=== PATIENT | female | born 1965 | race Caucasian/White ===

== ENCOUNTER 2019-03-13 17:15 | Inpatient (IN) ==
[2019-03-13 18:50] LABS: BASO# 0.07 X1000 (0.0-0.2); BASO% 2.5 % (0.0-0.8); EOS# 0.01 X1000 (0.0-0.7); EOS% 0.4 % (0.0-10.0); HEMATOCRIT 39.1 % (37.0-47.0); HEMOGLOBIN 12.7 g/dL (12.0-16.0); IMM GRAN# 0.02 X1000 (0.0-0.04); IMM GRAN% 0.7 % (0.0-0.5); LYMPH# 0.93 X1000 (1.2-3.4); MCH 30.3 PG (27-31); MCHC 32.5 g/dL (33-37); MCV 93.3 FL (81-99); MONO# 0.21 X1000 (0.11-0.59); MONO% 7.4 % (1.7-9.3); MPV 11.2 FL (7.4-10.4); NEUT# 1.58 X1000 (1.4-6.5); PLT 151 X1000 (130-400); RBC 4.19 XMIL (4.2-5.4); RDW 13.5 % (11.5-14.5); WBC 2.82 X1000 (4.8-10.8)
--- NOTE | 2019-03-13 18:51 | PROVIDER DOCUMENTATION ---
HPI-General Adult - General Chief Complaint: Flu Symptoms Stated Complaint: BODY PAIN Time Seen by Provider: 03/13/19 18:50 Source: patient Allergies/Adverse Reactions: Patient Allergies Allergy/AdvReac Type Severity Reaction Status Date / Time Penicillins Allergy Unknown Unknown Verified 04/05/12 03:43 Home Medications: Home Medication List Medication Instructions Recorded Confirmed Last Taken Type NK [No Home Medications] 03/13/19 03/13/19 Unknown History - History of Present Illness -Gen Adult Nature of Presenting Problems: 53 yr old F, hx of COPD, presents with a one week hx of flu-like symptoms - has had generalized malaise, body aches and cough. She denies fever or chills; reports taking OTC tylenol and goody powder for at least three days. She denies sick contacts. Location of Pain/Injury: reports: generalized Quality of Pain: reports: aching Severity: reports: moderate Onset/Duration: reports: 1 week ago Timing: reports: still present Associated Symptoms: reports: cough, fatigue Similar Symptoms Previously?: No Review of Systems - Adult - REVIEW OF SYSTEMS - ADULT Constitutional: reports: see HPI. denies: chills, fever Eyes: reports: no symptoms reported Ears, Nose, Mouth & Throat: reports: no symptoms reported Cardiovascular: reports: no symptoms reported Respiratory: reports: cough Gastrointestinal: reports: no symptoms reported Genitourinary: reports: no symptoms reported Musculoskeletal: reports: muscle aches Integumentary: reports: no symptoms reported Neurological: reports: no symptoms reported Psychiatric: reports: alcohol/drug dependence (reports hx of alcohol abuse in the past) Past History - Adult - PAST MEDICAL HISTORY-ADULT Review of Records: reports: Nursing Assessment Review Cardiovascular: reports: denies history Respiratory: reports: COPD Gastrointestinal: reports: denies history Neurological: reports: denies history - FAMILY HISTORY Family History: reviewed, not pertinent - SOCIAL HISTORY Smoking: cigarettes Physical Exam-General - PHYSICAL EXAM-ADULT Initial Vital Signs Reviewed: Yes - CONSTITUTIONAL General Appearance: alert, mild distress, thin - EYES Eyes: PERRL/EOMI. negative: scleral icterus - HEAD, EARS, NOSE, MOUTH & THROAT HENMT: normocephalic/atraumatic, moist mucous membranes - RESPIRATORY Respiratory: chest non-tender, lungs clear, normal breath sounds - CARDIOVASCULAR Cardiovascular: tachycardia - GASTROINTESTINAL (ABDOMEN) Abdominal Exam: normal bowel sounds, non tender, soft - SKIN Integumentary: warm/dry. negative: jaundice - PSYCHIATRIC Psych/Mental Status: normal mood/affect, oriented x 3 Progress - PLAN OF CARE/RESULTS Progress/Plan/Lab Results: Vital Signs - 8 hr 03/13/19 17:22 03/13/19 18:00 Temperature 98.4 F 98.4 F Pulse Rate 112 H 110 H Respiratory Rate 20 20 Blood Pressure 85/61 90/60 O2 Sat by Pulse Oximetry 99 97 03/13/19 17:26 Influenza Screen - Final Nasopharyngeal Laboratory Results - last 24 hr 03/13/19 17:26 WBC 2.82 L RBC 4.19 L Hgb 12.7 Hct 39.1 MCV 93.3 MCH 30.3 MCHC 32.5 L RDW Std Deviation 13.5 Plt Count 151 MPV 11.2 H Immature Gran % (Auto) 0.7 H Neut % (Auto) 56.0 Lymph % (Auto) 33.0 [place] % (Auto) 7.4 Eos % (Auto) 0.4 Baso % (Auto) 2.5 H Immature Gran # (Auto) 0.02 Neut # (Auto) 1.58 Lymph # (Auto) 0.93 L [place] # (Auto) 0.21 Eos # (Auto) 0.01 Baso # (Auto) 0.07 Orders Category Date Time Status Saline Loc DIRECTED Care 03/13/19 18:15 Active NPO Diet 03/13/19 18:15 Active AMYLASE [CHEM] Stat Lab 03/13/19 17:26 Received CBC WITH ELECTRONIC DIFF [HEME] Stat Lab 03/13/19 17:26 Results COMPREHENSIVE METABOLIC PANEL [CHEM] Stat Lab 03/13/19 17:26 Received INFLUENZA SCREEN A/B Stat Lab 03/13/19 17:26 Completed LIPASE [CHEM] Stat Lab 03/13/19 17:26 Received URINALYSIS W/POSS RFLX CULT [URINALYSIS] Stat Lab 03/13/19 18:15 Uncollected Pt has significantly elevated AST/ALT, 2:1 ratio; pt admits to Tylenol use, as well as previous alcohol hx; however, given the level of elevation; observation and trending of serial LFTs may be warranted; spoke with Dr. Acevedo, who accepts for admission. Result Diagrams: 03/13/19 17:26 03/13/19 17:26 - CONSULTS/PCP/HOSPITALIST Notification #1 *Consult/PCP/Hospitalist*: Dr. Acevedo Consult Disposition: Admit Departure - Departure Date of Disposition Decision: 03/13/19 Time of Disposition Decision: 20:24 DIAGNOSIS: Acute hepatitis Disposition: ADMITTED INPATIENT 09 Certified Medical Emergency: Emergent Condition: Fair Referrals and Follow-Ups: None,PCP [Primary Care Provider] - - Critical Care Note This patient required my direct & personal management of CC.: No Attestation - Physician/ RAFAEL Attestation Patient care was provided by Advanced Practice Provider:: No The physician spent face to face time with patient:: Yes Advanced Practice Provider documentation review:: Supervising physician onsite and consulted in the evaluation and care of this patient. The physician did have a face to face encounter with the patient.
[2019-03-13 19:00] LABS: BANDS 4 % (0-1); BASO 2 % (0-1); LARGE PLATELETS OCCASIONAL; LYMPHS 26 % (21-51); MONO 6 % (1-9); SEGS 54 % (42-75)
[2019-03-13 19:03] LABS: ALB/GLOB RATIO 1.2; ALBUMIN 3.8 g/dL (3.5-5.0); CALCIUM 8.4 mg/dL (8.8-10.2); POTASSIUM 3.8 mmol/L (3.5-5.1); TOTAL BILIRUBIN 0.49 mg/dL (0.20-1.00)
[2019-03-13] MEDS ORDERED: TORADOL IV ONE (19:57)
[2019-03-13] MEDS ORDERED: ROBAXIN 1,000 MG in NS 50 ML IV ONE (19:57)
[2019-03-13] MEDS ORDERED: NS 1,000 ML IV ONE (20:09)
[2019-03-13 20:12] LABS: ACETAMINOPHEN < 1.2 ug/mL (10-30); SALICYLATES < 3.00 mg/dL (3-10)
[2019-03-13 22:09] LABS: URINE SOURCE CLEAN CATCH
[2019-03-13 22:47] LABS: BILIRUBIN URINE NEGATIVE (NEGATIVE); BLOOD URINE NEGATIVE (NEGATIVE); COLOR YELLOW; GLUCOSE URINE NEGATIVE (NEGATIVE); KETONE URINE NEGATIVE (NEGATIVE); LEUKOCYTES URINE NEGATIVE (NEGATIVE); NITRITE URINE NEGATIVE (NEGATIVE); PH URINE 6.5; PROTEIN URINE TRACE mg/dL (NEGATIVE); SP GRAVITY URINE 1.011; TURBIDITY URINE CLEAR (CLEAR); UROBILINOGEN URINE NORMAL (NORMAL)
[2019-03-13 22:54] LABS: UR EPITHELIAL CELLS <10 /HPF (<10); URINE BACTERIA NEGATIVE /HPF; URINE RBC <10 /HPF (<10); URINE WBC <10 /HPF (<10)
[2019-03-13 23:14] LABS: URINE CASTS NONE SEEN; URINE CRYSTALS NONE SEEN; URINE SMALL ROUND CELLS NONE SEEN; URINE YEAST NONE SEEN
[2019-03-13] MEDS: NS 1,000 ML IV SCH (23:37)
[2019-03-14] MEDS: OXY IR PO PRN ×4 (05:20→21:08)
[2019-03-14] MEDS ORDERED: DUONEB (A & A) INH PRN (05:54)
[2019-03-14] MEDS ORDERED: NICODERM PATCH TD PRN (05:55)
[2019-03-14] MEDS: ZOFRAN IV PRN ×3 (06:29→21:05)
--- NOTE | 2019-03-14 06:51 | HISTORY AND PHYSICAL ---
CHIEF COMPLAINT: Generalized body aches. HISTORY OF PRESENT ILLNESS: Ms. Elda Fung is a 53-year-old female, who has a history of COPD and anxiety with depression. She presents to the hospital because of generalized body aches and pains along with weakness. She also describes having a fever with loss of appetite. The patient was seen and evaluated in the ER and was found to have markedly elevated liver enzymes. The patient's AST was 2628, ALT was 1550, and alkaline phosphatase was 158. The patient denies any nausea, vomiting, or abdominal pain. She will now be admitted to the floor now for further management. PAST MEDICAL HISTORY: COPD, anxiety disorder, and depression. SOCIAL HISTORY: The patient quit drinking alcohol about 6 months ago. She smokes cigarettes. No drug use. FAMILY HISTORY: Positive for mental illness. ALLERGIES: She is allergic to penicillin. PAST SURGICAL HISTORY: She has had surgery involving her right lung in the past. MEDICATIONS: Remeron and also inhalers for COPD. REVIEW OF SYSTEMS: Constitutional: She has a fever. 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 Eyes: Blurred vision. Ears, nose, and throat: She has sinus congestion. Cardiovascular: Chest pain. Respiratory: No cough. GI: As in history of present illness. : No dysuria. Dermatology: No skin lesions. Musculoskeletal: She has joint pains. Endocrinology: No diabetes or thyroid disease. Hematology: No bleeding problems. Psychiatric: She has anxiety with depression. Allergy/ Immunology. No symptoms suggestive of allergic rhinitis. PHYSICAL EXAMINATION: VITAL SIGNS: Temperature 99.8 degrees, pulse 93, respiratory rate 20, blood pressure 90/60, oxygen saturation is 97%. HEENT: She is atraumatic, normocephalic. She is anicteric. Extraocular movements intact. No oral lesions noted. NECK: No lymphadenopathy or thyromegaly. CARDIOVASCULAR: S1, S2. RESPIRATORY: She has evidence of good air entry bilaterally. ABDOMEN: Soft, nontender. No masses felt. EXTREMITIES: No evidence of edema. CENTRAL NERVOUS SYSTEM: No obvious focal deficits. LABORATORY DATA: WBC 2.82, hematocrit 39.1, platelet count 151,00, sodium 139, potassium 3.8, chloride 100, bicarb 29, BUN 8, creatinine 1.0, AST 2628, ALT 1550, and alkaline phosphatase 158. ASSESSMENT AND PLAN: 1. Acute hepatitis. We will obtain hepatitis panel, LORETO level, ferritin level, and CMV titers. Check for EB virus. Check ceruloplasmin level as well as a urine drug screen. Will also obtain abdominal ultrasound. Consult GI team. 2. Chronic obstructive pulmonary disease (COPD). Maintain patient on nebulized bronchodilators as needed. 3. Hyperglycemia. The patient does not have any history of diabetes. Will check hemoglobin A1c level. 4. History of anxiety with depression. Lexapro 20 mg p.o. once a day. 5. Deep vein thrombosis prophylaxis with sequential compression devices. 6. Gastrointestinal prophylaxis with proton pump inhibitor. cc: Abdirahman Acevedo MD MTDD
[2019-03-14 07:05] LABS: UR AMPHETAMINES QUAL NONE DETECTED (NONE DETECT); UR BARBITUATES QUAL NONE DETECTED (NONE DETECT); UR BENZODIAZEPIN QUAL NONE DETECTED (NONE DETECT); UR CANNABINOIDS QUAL NONE DETECTED (NONE DETECT); UR COCAINE QUAL NONE DETECTED (NONE DETECT); UR METHADONE QUAL NONE DETECTED (NONE DETECT); UR OPIATES QUAL NONE DETECTED (NONE DETECT); UR OXYCODONE QUAL NONE DETECTED (NONE DETECT); UR PCP QUAL NONE DETECTED (NONE DETECT)
[2019-03-14 07:21] LABS: HEMOGLOBIN A1C 5.1 % (4.8-6.0)
[2019-03-14] MEDS: DUONEB (A & A) INH SCH ×5 (08:21→22:47)
--- NOTE | 2019-03-14 08:53 | Diag Imaging Result Doc PS360 ---
EXAM: US ABDOMEN-COMPLETE HISTORY: abnormal lfts TECHNIQUE: Abdominal ultrasound COMPARISON: None. FINDINGS: Normal pancreas. No abdominal aortic aneurysm. Normal inferior vena cava. Normal liver and right kidney. Normal gallbladder. No stones. The common bile duct measures 3 mm. Normal left kidney. No hydronephrosis. Normal spleen. No ascites. IMPRESSION: Normal abdominal ultrasound. Electronically signed by Delmer Montague 03/14/2019 8:51 AM
[2019-03-14] MEDS: LEXAPRO PO SCH (09:30)
[2019-03-14] MEDS: PROTONIX PO SCH (09:32)
--- NOTE | 2019-03-14 10:59 | PROGRESS NOTE ---
DATE: 03/14/2019 SUBJECTIVE: This morning, Ms. Fung refers to be hurting everywhere but more specifically, her right shoulder and elbow. Ms. Fung refers that she has been feeling sick for the past almost a week, since Friday this week. She has been hurting everywhere and because of that, she has just been bingeing on Tylenol and on Goody Powder. Ms. Fung has also been drinking more than a pint of alcohol a day. She said her last drink was about this week, which is just about 3 days ago. Ms. Fung also said she has a friend and accidentally, a needle got her stuck during the week. OBJECTIVE: Current Vital Signs: Blood pressure is 101/55, pulse of 50, respirations are 14, temperature is 98.9 degrees, the patient is saturating 99%. General Examination: Ms. Fung is a 53-year-old, female. She is in bed. No distress. HEENT: Mucosa is pink and moist. Chest: Good air entry bilaterally. There were no crepitations, no rhonchi. Cardiovascular: Regular rate and rhythm. Abdomen: Soft, nontender. Bowel sounds present. Extremities: No pedal edema. 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 She is, however, tearful because of pain to the right shoulder. Musculoskeletal: The patient has limited mobility on the mobility right shoulder and the elbow from pain. The joints are not swollen and they are not erythematosus. Laboratory Data: From yesterday, LFTs are remarkably elevated. [place] screen is negative. The patient's ultrasound shows completely normal. ASSESSMENT: 1. Generalized body pain with loss of appetite, most likely due to the underlying hepatitis/systemic viral infection. The patient's mono screen is negative. I do not see that influenza was done so we will get one done. 2. Elevated Liver enzymes with hepatocellular injury pattern consistent with alcohol use. However, other etiologies including viral hepatitis also need to be ruled out. Hepatitis panel has been sent. We are still pending the results. 3. Alcohol use and abuse. The patient has been counseled. She is not showing any signs of withdrawal. 4. History of some mental disorder. Patient is not able to tell me what type of mental disorder she has. However, she has been disabled because of that. She was not taking any medications as per her home medication documentation. cc: Will Macario MD MTDD
[2019-03-14] MEDS: VITAMIN B-1 PO SCH (13:36)
[2019-03-15] MEDS: DUONEB (A & A) INH SCH ×6 (03:39→23:10)
[2019-03-15] MEDS: NS 1,000 ML IV SCH (05:08)
[2019-03-15] MEDS: ZOFRAN IV PRN ×4 (05:08→19:03)
--- NOTE | 2019-03-15 05:56 | GASTROENTEROLOGY CONSULTATION ---
DATE: 03/15/2019 REASON FOR CONSULTATION: Acute hepatitis. HISTORY OF PRESENT ILLNESS: Ms. Elda Fung is a 53-year-old woman with a past medical history of depression, COPD, history of multiple right pneumothoraces requiring thoracentesis, who presents with a week of arthralgias, decreased p.o. intake, decreased appetite, subjective fevers, chills, sweats and nausea. The patient reports being in her usual state of health until about a week ago. She says that she has been taking Goody powders 2 to 3 times per day treat her pain, as well as extra Strength Tylenol at least 2 to 3 tablets 3 times a day. She denies any changes in her bowel habits including diarrhea, constipation, rectal bleeding or melena. At baseline, she has a bowel movement at least once a week. About a month ago, she endorsed taking a Z-Herson with prednisone and cough syrup for a suspected bronchitis or COPD exacerbation. She does not take any herbals or supplements. Per daughter, she has a history of polysubstance abuse taking multiple different substances; however, the patient denies any recent drug use. She has a history of heavy drinking in the past and has been drinking more frequently lately. She drinks about a half a pint of vodka daily. Her last drink was on . No jaundice, confusion, ascites, LE edema, or vomiting. REVIEW OF SYSTEMS: As per HPI, otherwise 12 point review of systems is negative. PAST MEDICAL HISTORY: As per HPI. PAST SURGICAL HISTORY: Right lung pleurodesis. She has had multiple surgeries to the right lung because of recurrent pneumothoraces. FAMILY HISTORY: No family history of GI malignancies. SOCIAL HISTORY: She smokes about a quarter pack of tobacco a day. She has been smoking since she is 15 years old. History of alcoholism and polysubstance abuse. MEDICATIONS: She takes Remeron inhalers for COPD, Goody powders, and [id number] Extra- Strength Tylenol. ALLERGIES: To penicillin which causes swelling. PHYSICAL EXAMINATION: Vital Signs: Temperature is 99.7 degrees, heart rate of 84, respiratory rate 16, blood pressure 92/58, O2 saturation is 97% on room air. General: The patient is awake, alert, oriented, in no acute distress. HEENT: Sclerae are anicteric. Moist mucous membranes. Extraocular movements intact. Neck: Supple. No JVD or lymphadenopathy. Cardiac: Regular rate and rhythm. No murmurs, rubs, or gallops. Abdomen: Soft, nontender, nondistended. Normoactive bowel sounds. No rebound or guarding. Extremities: No clubbing, cyanosis, or edema. Neurologic: Nonfocal. No asterixis. LABORATORY DATA: White count of 2.8, hemoglobin is 12.7, platelets of 151,000, with 12% bands. Sodium 139, potassium 3.8, chloride 100, bicarbonate 29, BUN 8, creatinine of 1.0, glucose of 130. LFTs, total bilirubin of 0.49, AST is 2628, ALT of 1550, alkaline phosphatase of 158, total protein of 7.0, albumin of 3.8, lipase of 25, ferritin of 1381. UA shows trace protein. U-Tox negative for salicylates and acetaminophen or drugs. [place] screen is negative. IMAGING: Abdominal ultrasound is normal, common bile duct measures 3 mm. ASSESSMENT AND PLAN: Ms. Elda Fung is a 53-year-old woman with a history of COPD who presents with 1 week of arthralgias, subjective fevers, sweats, and nausea. Labs reveal an elevated AST and ALT and a nearly 2:1 ratio; however, this is too high for alcoholic liver disease. Her Tylenol level was negative although she has been taking quite a bit of Tylenol recently. Synthetic function of her liver is normal. There is no INR checked. We will check INR and trend LFTs daily. Acute hepatitis panel is pending as well as LORETO, ceruloplasmin, CMV, hemochromatosis, and PBC unlikely with the degree of elevation in LFTs. With the bandemia and the elevated AST and ALT we will also check a CPK as well for extra hepatic skeletal muscle breakdown, which is less likely. With her recent history of alcohol and possible drug use acute viral hepatitis is very likely. Continue supportive care with IV fluids, antiemetics, and holding hepatotoxic drugs. # Acute hepatitis # Alcoholism # Arthralgias # Bandemia # Elevated ferritin # History of substance abuse Thank you for this consultation. We will follow with you. Please call with any questions or concerns. [facility] HOSPITALRadha
[2019-03-15] MEDS: LEXAPRO PO SCH (10:13)
[2019-03-15] MEDS: PROTONIX PO SCH (10:15)
[2019-03-15] MEDS: VITAMIN B-1 PO SCH (10:15)
--- NOTE | 2019-03-15 11:08 | GASTROENTEROLOGY PROGRESS NOTE ---
DATE: 03/15/2019 SUBJECTIVE: Ms. Fung is a 53-year-old, female, resting in bed. She was feeling sleepy and was reluctant to answer questions. She complained of nausea, and mentioned vomiting once yesterday. She has denied any bowel movements today. OBJECTIVE: Vital Signs: Temperature 98.8 degrees, pulse 92, respirations 16, blood pressure 83/67, oxygen saturation 98% on room air. Her weight is 112 pounds, BMI is 19.3 kg/m2. General: She is alert, oriented x3, and in no acute distress. HEENT: Pale conjunctivae. mild icterus. PERRL. Neck: Supple. Lungs: Clear to auscultation in the anterior pearce. Cardiovascular: Regular rate and rhythm. Abdomen: Soft, nontender, nondistended. Active bowel sounds heard in all 4 quadrants. Extremities: No clubbing, no cyanosis, no edema. Pedal pulses 2+ present bilaterally. Neurologic: She is alert and oriented x3, and in no acute distress. IMAGING AND LABORATORY DATA: WBCs 2.54, RBC 3.21, hemoglobin 9.9, hematocrit 30.6, platelet count is 151,000. sodium 138, potassium 4.3, chloride 102, carbon dioxide 25, anion gap 11, BUN 5, creatinine 0.8, glucose 114, calcium 8.0, Total bilirubin 1.53, AST 2401, ALT 1848, alkaline phosphatase 153. Abdominal ultrasound was normal. IMPRESSION AND PLAN: Alcoholic liver disease Elevated LFT's; Acute Hepatitis Panel is reactive for Hepatitis Bc Ab and Hepatitis A Ab suggesting acute Hepatitis B and Hepatitis A. Nausea/Vomiting COPD History of needle stick History of alcohol abuse History of drug abuse PLAN: Ms. Fung is a 53-year-old female, GI is following her for elevated liver function tests. Her EBV monoscreen was negative as well LORETO screen was negative. Her LFT's are still elevated. The patient is currently on intravenous fluids at 30 mL/hour. We will start Banana bag every day for 3-5 days. She will continue on Thiamine, MVI QD. Watch for any signs of alcohol withdrawal and treat accordingly per the primary care team. She is on Protonix 40 mg po daily and antiemetic, Zofran, for her nausea and vomiting. Continue with enteric precautions and universal precautions as patient has acute hepatitis B and Hepatitis A. Will continue to monitor the patient, daily labs- CMP and INR/PT, and follow the plan of care per PCP. This plan was discussed with Dr. Anne Dictated by MAC Dye for Neo Anne MD cc: Neo Anne MD I have seen and examined the patient myself and I agree with the above plan of care. I have discussed the above with the patient and all questions were answered. Please call us with any further questions. ARCHIE
[2019-03-15] MEDS: OXY IR PO PRN ×2 (12:19→13:11)
[2019-03-15 13:36] LABS: HEPATITIS PROFILE ACUTE SEE COMMENTS
--- NOTE | 2019-03-15 16:29 | PROGRESS NOTE ---
DATE: 03/15/2019 SUBJECTIVE: This morning Ms. Fung refers to be doing a lot better. Generalized pains have significantly improved. She did refer to be slightly nauseated. OBJECTIVE: Vital signs: Blood pressure 92/71, pulse of 82, respiration is 15, temperature is 98.1 degrees. General: Ms. Fung is a 53-year-old female. She was in bed in no distress. HEENT: Mucosa is pink and moist. Anicteric. Acyanotic. Neck: Supple. Chest: Good air entry bilaterally. There were no crepitations, no rhonchi. Cardiovascular: Regular rate and rhythm. Abdomen: Soft, nontender. Bowel sounds present. Extremities: No pedal edema. 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 Musculoskeletal: The right shoulder and elbow are more mobile today. LABORATORY DATA: None this morning because Ms. Fung declined to wanting lab drawn. SEROLOGIES: [place] screen is negative. The EBV IgM is negative. IgG is positive, which is just chronic. The hepatitis panel shows hepatitis-B core antibody IgM is reactive, which is acute infection. The hepatitis-C antibody is nonreactive. The hepatitis-A viral antibody IgM is reactive. ASSESSMENT: 1. Generalized body pain with loss of appetite secondary to acute hepatitis. 2. Acute viral hepatitis (hepatitis-A and hepatitis-B). 3. Alcohol use and abuse. Patient has been counseled. 4. History of mental disorder. PLAN: In general, Ms. Fung looked clinically better. Her hepatitis serologies is positive for acute hepatitis-B and hepatitis-A. Today, she is going to be under enteric and contact precautions. We are going to follow up on her liver panel tomorrow. If they are trending down, I think Ms. Fung can be discharged home with recommendations to follow up with GI. Ms. Fung is also being seen by Dr. Ku. We will wait for his final recommendations on her. cc: Will Macario MD
[2019-03-15 16:30] LABS: HEMATOCRIT 30.6 % (37.0-47.0); HEMOGLOBIN 9.9 g/dL (12.0-16.0); MCH 30.8 PG (27-31); MCHC 32.4 g/dL (33-37); MCV 95.3 FL (81-99); MPV 11.1 FL (7.4-10.4); RBC 3.21 XMIL (4.2-5.4); RDW 13.9 % (11.5-14.5); WBC 2.54 X1000 (4.8-10.8)
[2019-03-15 16:37] LABS: INR 1.28; PROTIME 16.2 Seconds (11.0-16.0)
[2019-03-15 17:01] LABS: AGAP 11; ALBUMIN 2.6 g/dL (3.5-5.0); ALKALINE PHOSPHATASE 153 U/L (32-104); BUN 5 mg/dL (8-22); CHLORIDE 102 mmol/L (98-107); COSMO 274; CREATININE 0.8 mg/dL (0.5-0.9); ESTIMATED GFR > 60; GLUCOSE 114 mg/dL (70-104); GOT 2401 U/L (10-30); GPT 1848 U/L (10-36); POTASSIUM 4.3 mmol/L (3.5-5.1); SODIUM 138 mmol/L (136-145); TCO2 25 mmol/L (25-35); TOTAL BILIRUBIN 1.53 mg/dL (0.20-1.00); TOTAL PROTEIN 5.2 g/dL (6.3-8.3)
[2019-03-16] MEDS: NS 1,000 ML IV SCH ×2 (01:57→03:17)
[2019-03-16] MEDS: M.V.I.-12 10 ML, FOLIC ACID 1 MG, MAGNESIUM SULFATE 1 GM, THIAMINE 100 MG in NS 1,000 ML IV SCH (02:04)
[2019-03-16] MEDS: DUONEB (A & A) INH SCH ×6 (04:05→23:58)
[2019-03-16] MEDS: PROTONIX PO SCH (06:06)
[2019-03-16] MEDS: ZOFRAN IV PRN ×3 (07:43→18:08)
[2019-03-16 08:39] LABS: ALBUMIN 2.5 g/dL (3.5-5.0); DIRECT BILIRUBIN 1.8 mg/dL (0.00-0.20); TOTAL BILIRUBIN 1.91 mg/dL (0.20-1.00)
[2019-03-16] MEDS: LEXAPRO PO SCH (11:21)
[2019-03-16] MEDS: VITAMIN B-1 PO SCH (11:33)
[2019-03-16] MEDS: OXY IR PO PRN ×2 (11:33→18:08)
--- NOTE | 2019-03-16 12:24 | GASTROENTEROLOGY PROGRESS NOTE ---
DATE: 03/16/2019 SUBJECTIVE: Ms. Fung is a 53-year-old female, resting in bed. She complained of feeling weak, and being nauseated, but has denied any vomiting. OBJECTIVE: Vital Signs: Temperature 98.2, pulse 73, respirations 16, blood pressure 101/59, oxygen saturation 96% on room air. The patient's weight is 112 pounds. BMI is 19.3 kg/m2. General: She is alert and oriented x3, in no acute distress. HEENT: Pale conjunctivae. Mild icterus. HUE. Neck: Supple. Lungs: Clear to auscultation in the anterior pearce. Cardiovascular: Regular rate and rhythm. Abdomen: Soft, nontender, nondistended. Active bowel sounds heard in all 4 quadrants. Extremities: No clubbing, no cyanosis, no edema. Pedal pulses are 2+ and present bilaterally. Neurologic: She is alert and oriented x3. LABORATORY DATA: WBC is 2.54, RBC 3.2, hemoglobin 9.9, hematocrit 30.6, platelet count is 151,000. PT 16.2, INR 1.28. Sodium 138, potassium 4.3, chloride 102, carbon dioxide 25, anion gap 11, BUN 5, creatinine 0.8, glucose 114, calcium 8.0. Total bilirubin 1.91, AST 2320, ALT 1918, alkaline phosphatase 137, albumin 2.5. The patient's LORETO reflex was negative. Her CMV IgG, and IgM were negative. Her [place] virus, IgM A/B was negative. IgG A/B was positive, and A/B was positive. Hepatitis panel, her Hep B surface antigen was nonreactive, hepatitis B core antigen was reactive, hepatitis C antibody nonreactive, hepatitis A viral antibody was reactive. IMPRESSION AND PLAN: Alcoholic liver disease Elevated LFT's Acute Hepatitis - positive Hep A viral antibody Nausea and Vomiting COPD History of needle stick History of alcohol abuse History of drug abuse PLAN: Ms. Fung is a 53-year-old female. GI is following her for elevated liver function tests. The patient's hemoglobin and hematocrit are 9.9 and 30.6, which have been trending downward. We have ordered labs to check her iron, ferritin, TIBC, folate, and B12, and also her liver function test and INR. The patient is receiving intravenous fluids, normal saline at 30 mL, and she is also getting receiving the MVI banana bag at 150 mL. The patient is on vitamin B1 at 100 mg daily. She is on GI prophylaxis Protonix 40 mg PO daily, antiemetic Zofran for her nausea and vomiting. We will continue to monitor the patient's CBCs, BMPs, and provide supportive care, and follow the plan of care per PCP. This plan was discussed with Dr. Ku. Please call us for any further questions or concerns. Dictated by MAC Dye for Garret Ku MD Physician Attestation I have seen and examined the patient. I have discussed and reviewed the note by Kristina WATTS and agree with findings and plan as documented. In brief, Ms. Elda Fung is a 53 year old woman who presented with flu-like symptoms and abdominal pain found to have acute hepatitis A. She has HBVcab with negative surface antigen negative, which represents prior HBV infection (not current). She does have anemia without overt bleeding. Will do anemia workup. Continue supportive care. MTDD
[2019-03-16 12:57] LABS: INR 1.19; PROTIME 15.2 Seconds (11.0-16.0)
[2019-03-16 13:24] LABS: ALB/GLOB RATIO 1.1; ALBUMIN 2.6 g/dL (3.5-5.0); DIRECT BILIRUBIN 2.1 mg/dL (0.00-0.20); TOTAL BILIRUBIN 2.23 mg/dL (0.20-1.00); TOTAL PROTEIN 4.9 g/dL (6.3-8.3)
--- NOTE | 2019-03-16 18:28 | PROGRESS NOTE ---
DATE: 03/16/2019 SUBJECTIVE: This morning Ms. Fung refers to be doing a lot better. Minimal nauseation. OBJECTIVE: Vital signs: Blood pressure is 92/56, pulse of 91, respirations 18, temperature 98.3 degrees. The patient is saturating 100%. General: Ms. Fung is a 53-year-old female. She is in bed, no distress. HEENT: Mucosa is pink and moist. Anicteric. Acyanotic. Neck: Supple. Chest: Good air entry bilaterally. No crepitations. No rhonchi. Cardiovascular: Regular rate and rhythm. No murmurs, no rubs, no gallops. GI: Abdomen is soft, nontender. Bowel sounds present. Extremities: No pedal edema. STOGIE PACKER: Patient is awake, alert, oriented. Musculoskeletal: Right shoulder and elbow are less painful, more mobile today. LABORATORY DATA: No CBC for this morning. The liver enzymes continue to be trending slightly up with an AST of 2447, ALT of 2048. ASSESSMENT: 1. Generalized body pain and aches and loss of appetite secondary to acute hepatitis. 2. Acute viral hepatitis (hepatitis A and hepatitis B). 3. Alcohol use and abuse. 4. History of a mental disorder. PLAN: In general, Ms. Fung is doing well. She is currently on enteric and contact precautions. She continues to be on multivitamins, pain control, and I will follow up on her liver enzymes. The enzymes seem to be trending up. We are going to follow this until they plateau and start coming down, and hopefully at that time we can discharge Ms. Fung. cc: Will Macario MD
[2019-03-17] MEDS: M.V.I.-12 10 ML, FOLIC ACID 1 MG, MAGNESIUM SULFATE 1 GM, THIAMINE 100 MG in NS 1,000 ML IV SCH (02:55)
[2019-03-17] MEDS: DUONEB (A & A) INH SCH ×6 (04:28→23:08)
[2019-03-17] MEDS: OXY IR PO PRN ×3 (05:46→21:53)
[2019-03-17] MEDS: ZOFRAN IV PRN ×4 (05:46→21:57)
[2019-03-17] MEDS: PROTONIX PO SCH (06:05)
[2019-03-17 07:50] LABS: HEMATOCRIT 32.5 % (37.0-47.0); HEMOGLOBIN 10.4 g/dL (12.0-16.0); MCH 30.6 PG (27-31); MCV 95.6 FL (81-99); MPV 11.6 FL (7.4-10.4); RBC 3.4 XMIL (4.2-5.4); RDW 14.6 % (11.5-14.5); WBC 3.09 X1000 (4.8-10.8)
[2019-03-17 08:16] LABS: ALB/GLOB RATIO 0.9; ALBUMIN 2.5 g/dL (3.5-5.0); DIRECT BILIRUBIN 2.6 mg/dL (0.00-0.20); TOTAL BILIRUBIN 2.92 mg/dL (0.20-1.00); TOTAL PROTEIN 5.4 g/dL (6.3-8.3)
[2019-03-17] MEDS: LEXAPRO PO SCH (09:21)
[2019-03-17] MEDS: VITAMIN B-1 PO SCH (09:21)
[2019-03-17] MEDS: NS 1,000 ML IV SCH ×2 (09:51→19:26)
--- NOTE | 2019-03-17 11:30 | GASTROENTEROLOGY PROGRESS NOTE ---
DATE: 03/17/2019 SUBJECTIVE: Ms. Fung is a 53-year-old female who was resting in bed, getting her breathing treatments. The patient complained of not feeling so good and being nauseated. She said she was not feeling like eating her breakfast and also complained of generalized abdominal pain. OBJECTIVE: Vital Signs: Temperature 98 degrees, pulse 71, respirations 16, blood pressure 87/57, oxygen saturation 94% on room air. The patient's weight is 112 pounds. BMI is 19.13 kg/m2. General: She is alert and oriented x3, in no acute distress. HEENT: Pale conjunctivae. Mild icterus. PERRL. Neck: Supple. Lungs: Clear to auscultation in the anterior pearce. Cardiovascular: Regular rate and rhythm. Abdomen: Soft, tender, nondistended. Active bowel sounds heard in all 4 quadrants. Extremities: No clubbing, no cyanosis, no edema. Pedal pulses 2+ present bilaterally. Neurologic: She is alert and oriented x3. LABS: WBCs 3.09, RBC 3.40, hemoglobin 10.4, hematocrit 32.5, platelet count 176,000. The patient's total bilirubin is 2.92, AST 1724, ALT 1754, alkaline phosphatase 154, albumin 2.5. IMPRESSION AND PLAN Alcoholic liver disease Elevated LFT's Acute hepatitis - positive Hep a viral antibody Nausea and Vomiting COPD History of needle stick History of alcohol abuse History of drug abuse PLAN: Ms. Fung is a 53-year-old female, GI is following her for elevated liver function tests. The patient's hepatitis A viral antibody was positive. The patient is receiving IV fluids with normal saline at 30. She is receiving antiemetic, Zofran, for her nausea and GI prophylaxis Protonix 40 mg p.o. daily. The patient is currently receiving MVI banana bag at 150 mL and also receiving thiamine p.o. daily. Her LFT's are trending downwards. We will continue to monitor the patient's CBCs, BMPs, provide supportive care and follow the plan of care per PCP. This plan was discussed with Dr. Ku. Please call us for any further questions or concerns. Dictated by MAC Dye for Garret Ku MD Physician Attestation I have seen and examined the patient. I have discussed and reviewed the note by Kristina WATTS and agree with findings and plan as documented. In brief, Ms. Elda Fung is a 53 year old woman who presented with flu-like symptoms and abdominal pain found to have acute hepatitis A. LFTs improving. She has HBVcAb IgM with negative surface antigen negative, which represents likely prior HBV infection. She does have anemia without overt bleeding. Iron studies show mild decrease in iron and elevated ferritin, which is likely acute phase. Continue supportive care. She will need diagnostic EGD/colonoscopy as outpatient. MTDD
--- NOTE | 2019-03-17 20:55 | PROGRESS NOTE ---
DATE: 03/17/2019 SUBJECTIVE: This morning, Ms. Fung referred to be still nauseating and feeling sick in her stomach. Has not tolerated any meals. OBJECTIVE: Vital signs: Her blood pressure is 93/74, pulse of 73, respirations 18, temperature 97.5 degrees. General: Ms. Fung is a 53-year-old female. She is in bed. She looks slightly in painful distress. HEENT: Mucosa is pink and moist. Anicteric. Acyanotic. Neck: Supple. Chest: Good air entry bilaterally. There were no crepitations, no rhonchi. Cardiovascular: Regular rate and rhythm. No murmurs, no rubs, no gallops. GI: Abdomen is soft, minimally tender in the epigastrium, but no hepatosplenomegaly felt. Bowel sounds present. Extremities: No pedal edema. CASUAL SHOE INSPECTOR: Patient is awake, alert, oriented. Patient's inputs and outputs are not well documented. LABORATORY DATA: WBC is 3.09, hemoglobin is 10.4, platelet count of 171,000. Chemistry is also reviewed. For the most part,, the LFTs: AST is 9724. That has improved from yesterday. ALT is also 1754. That is also improved from yesterday. The patient's ceruloplasmin level is within normal range. ASSESSMENT: 1. Generalized pain and aches with loss of appetite, secondary to acute hepatitis. 2. Acute viral hepatitis (A and B). 3. Alcohol use and abuse. 4. History of a mental disorder. So, this morning, Ms. Fung is slightly nauseated. We are going to treat this symptomatically. I think it is all related to the acute hepatitis. The liver enzymes are trending down, which is good. We are going to continue to monitor this. We will repeat her electrolytes tomorrow morning and follow it up accordingly. I have increased her baseline fluids to 100 mL/h today. cc: Will Macario MD
[2019-03-18] MEDS: DUONEB (A & A) INH SCH ×5 (03:36→19:37)
[2019-03-18] MEDS: OXY IR PO PRN ×2 (04:42→17:35)
[2019-03-18] MEDS: M.V.I.-12 10 ML, FOLIC ACID 1 MG, MAGNESIUM SULFATE 1 GM, THIAMINE 100 MG in NS 1,000 ML IV SCH (04:43)
[2019-03-18] MEDS: NS 1,000 ML IV SCH ×2 (04:43→14:48)
[2019-03-18] MEDS: PROTONIX PO SCH (06:39)
[2019-03-18 08:03] LABS: HEMATOCRIT 31.8 % (37.0-47.0); HEMOGLOBIN 10.3 g/dL (12.0-16.0); MCH 30.9 PG (27-31); MCHC 32.4 g/dL (33-37); MCV 95.5 FL (81-99); MPV 11.8 FL (7.4-10.4); RBC 3.33 XMIL (4.2-5.4); RDW 14.7 % (11.5-14.5); WBC 3.25 X1000 (4.8-10.8)
[2019-03-18] MEDS: LEXAPRO PO SCH (08:33)
[2019-03-18] MEDS: VITAMIN B-1 PO SCH (08:33)
[2019-03-18 08:38] LABS: AGAP 7; ALBUMIN 2.7 g/dL (3.5-5.0); BUN 5 mg/dL (8-22); CALCIUM 7.8 mg/dL (8.8-10.2); CHLORIDE 104 mmol/L (98-107); COSMO 276; CREATININE 0.6 mg/dL (0.5-0.9); ESTIMATED GFR > 60; GLUCOSE 88 mg/dL (70-104); PHOSPHORUS 2.9 mg/dL (2.7-4.5); POTASSIUM 5.1 mmol/L (3.5-5.1); SODIUM 140 mmol/L (136-145); TCO2 29 mmol/L (25-35)
[2019-03-18 08:52] LABS: ALB/GLOB RATIO 0.9; ALBUMIN 2.7 g/dL (3.5-5.0); DIRECT BILIRUBIN 3.3 mg/dL (0.00-0.20); TOTAL BILIRUBIN 3.5 mg/dL (0.20-1.00); TOTAL PROTEIN 5.6 g/dL (6.3-8.3)
--- NOTE | 2019-03-18 11:56 | GASTROENTEROLOGY PROGRESS NOTE ---
DATE: 03/18/2019 SUBJECTIVE: Ms. Fung is a 53-year-old, female, sitting in bed, having her breakfast. She mentioned feeling a little better today. She said that she has not had any nausea or vomiting today but did have a little bit yesterday. She has denied any abdominal pain. OBJECTIVE: Vital Signs: Temperature 98.0 degrees, pulse 62, respirations 15, blood pressure 85/53, oxygen saturation 90% on room air. The patient's weight is 112 pounds. BMI is 19.3 kg/m2. General: She is alert, oriented x3, and in no acute distress. HEENT: Pale conjunctivae. Mild icterus. PERRL. Neck: Supple. Lungs: Clear to auscultation in the anterior pearce. Cardiovascular: Regular rate and rhythm. Abdomen: Soft, nontender, nondistended. Active bowel sounds heard in all 4 quadrants. Extremities: No clubbing, no cyanosis, no edema. Pedal pulses 2+ present bilaterally. Neurological: Alert and oriented x3. Labs: WBCs 3.25, RBCs 3.33, hemoglobin 10.3, hematocrit 31.8, platelet count is 171,000. Sodium 140, potassium 5.1, chloride 104, carbon dioxide 29, anion gap 7, BUN 5, creatinine 0.6, glucose 88, calcium 7.8, phosphorus 2.9. Total bilirubin 3.50, AST 1092, ALT 1487, alkaline phosphatase 156, albumin is 2.7. IMPRESSION: 1. Alcoholic liver disease. 2. Elevated liver function tests. 3. Acute hepatitis A and B. 4. Nausea and vomiting. 5. Chronic obstructive pulmonary disease. 6. History of needlestick. 7. History of alcohol abuse. 8. History of drug abuse. PLAN: Ms. Fung is a 53-year-old, female who is being followed by GI for her elevated liver function tests. The patient's LFTs today were total bilirubin 3.50, AST 1092, ALT 1487, and alkaline phosphatase 156, which is elevated but it is trending a little bit downwards. The patient has the discharge orders but we will hold her discharge for today. We will continue to monitor her today and let the primary care provider know if she can be discharged tomorrow. The patient is on GI prophylaxis with Protonix 40 mg IV p.o. daily. For her nausea and vomiting, she is on antiemetics, Zofran 4 mg as needed, and she is also receiving MVI, banana bag at 150 mL, and IV fluids 100 mL. We will continue to monitor the patient and provide supportive care. This plan was discussed with Dr. Anne. Please call us for any further questions or concerns. Dictated by MAC Dye for Neo Anne MD cc: Neo Anne MD I have seen and examined the patient myself and I agree with the above plan of care. I have discussed the above with the patient and all questions were answered. Please call us with any questions or concerns. MTDD
--- NOTE | 2019-03-18 16:34 | PROGRESS NOTE ---
DATE: 03/18/2019 SUBJECTIVE: This morning Ms. Fung refers to be doing well. She denies any complaints. No fever. No chills. Body pains have all resolved. She was not nauseated early this morning. OBJECTIVE: Vital signs: Blood pressure was 94/51, pulse of 63, respirations 19, temperature 97.6 degrees. The patient is saturating 100% on room air. General: Ms. Fung is a 53-year-old female. She is in bed, no distress. HEENT: Mucosa is pink and moist. Anicteric. Acyanotic. Neck: Supple. Chest: Good air entry bilaterally. There were no crepitations, no rhonchi. Cardiovascular: Regular rate and rhythm. No murmurs. No rubs. No gallops. GI: Abdomen is soft, nontender. There was no hepatosplenomegaly. Bowel sounds present. Extremities: No pedal edema. MANAGEMENT LECTURER: Patient is awake, alert, and oriented. LABORATORY DATA: CBC shows normocytic anemia with leukopenia. Platelet count is fine. LFTs show AST is down to 1,092, ALT is down to 1,487. This is more than half reduction in the levels from admission. ASSESSMENT: 1. Generalized weakness, pain and loss of appetite secondary to acute hepatitis. 2. Acute viral hepatitis A and B with elevated liver enzymes. This has reduced more than half the level on admission. 3. Alcohol use and abuse. Patient has been counseled. 4. History of mental disorder. The patient is not able to tell me what she is being treated for, but she has been on disability because of that. PLAN: So from medical standpoint, Ms. Fung is tolerating some meals. She is no longer having any chills or body aches. Her liver enzymes have improved and reducing more than half. We think she can be discharged. GI recommends to hold on the discharge for another day, until tomorrow since the LFTs are still above 1,000. Will follow up with GI tomorrow for further recommendations. The disposition will depend on final recommendations from GI. cc: Will Macario MD
[2019-03-18] MEDS: ZOFRAN IV PRN (17:33)
[2019-03-19] MEDS: DUONEB (A & A) INH SCH ×4 (00:40→11:36)
[2019-03-19] MEDS: M.V.I.-12 10 ML, FOLIC ACID 1 MG, MAGNESIUM SULFATE 1 GM, THIAMINE 100 MG in NS 1,000 ML IV SCH (01:40)
[2019-03-19] MEDS: NS 1,000 ML IV SCH (04:40)
[2019-03-19] MEDS: PROTONIX PO SCH (06:31)
[2019-03-19 07:55] LABS: ALB/GLOB RATIO 0.7; ALBUMIN 2.3 g/dL (3.5-5.0); DIRECT BILIRUBIN 4.1 mg/dL (0.00-0.20); TOTAL BILIRUBIN 4.36 mg/dL (0.20-1.00); TOTAL PROTEIN 5.6 g/dL (6.3-8.3)
[2019-03-19] MEDS: VITAMIN B-1 PO SCH (08:22)
[2019-03-19] MEDS: LEXAPRO PO SCH (08:23)
[2019-03-19] MEDS: ZOFRAN IV PRN (08:28)
[2019-03-19 12:14] VITALS: BP 114/64
--- NOTE | 2019-03-19 13:42 | GASTROENTEROLOGY PROGRESS NOTE ---
DATE: 03/19/2019 SUBJECTIVE: Ms. Fung is a 53-year-old female. She was resting in bed. The patient has denied any nausea or vomiting today but just complains of feeling weak and tired. She also has denied any abdominal pain. OBJECTIVE: Vital Signs: Temperature 98.0 degrees, pulse 70, respirations 20, blood pressure 114/64, oxygen saturation 97% on room air. The patient's weight is 112 pounds. BMI is 19.3 kg/m2. General: She is alert, oriented x3, and in no acute distress. HEENT: Pale conjunctivae. Mild icterus. PERRL. Neck: Supple. Lungs: Clear to auscultation in the anterior pearce. Cardiovascular: Regular rate and rhythm. Abdomen: Soft, nontender, nondistended. Active bowel sounds heard in all 4 quadrants. Extremities: No clubbing, no cyanosis, no edema. Pedal pulses 2+ present bilaterally. Neurologic: She is alert and oriented x3. LABORATORY DATA: WBC is 3.25, RBC 3.33, hemoglobin 10.3, hematocrit 31.8, platelet count is 171,000. Sodium 140, potassium 5.1, chloride 104, carbon dioxide 29, anion gap 7, BUN 5, creatinine 0.6, glucose 88, calcium 7.8, phosphorus 2.9, total bilirubin is 4.36. Her total bilirubin is 4.36. AST 645, ALT is 1120, alkaline phosphatase is 167, albumin is 2.3. IMPRESSION: 1. Alcoholic liver disease. 2. Elevated liver function tests. 3. Acute hepatitis A. 4. Nausea, vomiting. 5. Chronic obstructive pulmonary disease. 6. History of needlestick. 7. History of alcohol abuse. 8. History of drug abuse. PLAN: Ms. Fung is a 53-year-old female who is being followed by Gastroenterology for elevated liver function tests. Her liver function tests today was total bilirubin 4.36, AST 645, AST 645, ALT 1120, and alkaline phosphatase 167. It has been fluctuating. The patient has denied any nausea or vomiting today. This morning, she denied any nausea and vomiting, but she did mention that she was feeling weak. The patient was able to eat a little bit of her breakfast. She is on a GI prophylaxis, Protonix p.o. daily. The patient is receiving banana bag MVI at 150 mL and normal saline at 100 mL/h. We have consultation on not smoking, not drinking alcohol and not to consume drugs. The patient has verbalized understanding of the instructions. We will continue to monitor her and follow the plan of care per PCP. This plan was discussed with Dr. Ku. Please call us for any further questions or concerns. Dictated by MAC Dye for Garret Ku MD Physician Attestation I have seen and examined the patient. I have discussed and reviewed the note by Kristina WATTS and agree with findings and plan as documented. In brief, Ms. Elda Fung is a 53 year old woman who presented with flu-like symptoms and abdominal pain found to have acute hepatitis A. She has HBVcab IgM with negative surface antigen negative, which likely represents prior HBV infection. HBV DNA pending. She does have anemia without overt bleeding. Continue supportive care. LFTs downtrending. She can be discharged from [facility] with follow-up in 2-4 weeks. MARYD
--- NOTE | 2019-03-20 20:24 | DISCHARGE SUMMARY ---
ADMISSION DATE: 03/13/2019 DISCHARGE DATE: 03/19/2019 DISCHARGE DIAGNOSES: 1. Acute viral hepatitis A and B with elevated liver function tests. 2. History of alcohol use and abuse. 3. Generalized weakness. 4. History of mental disorder, unknown. PROCEDURES PERFORMED: Abdomen ultrasound dated 03/14/2019, impression normal abdominal ultrasound. CONSULT: Gastroenterology Department, Dr. Ku. HOSPITAL COURSE: 53-year-old female with a past medical history of anxiety, depression, possible COPD, presented to the hospital because of generalized body aches and pain along with weakness, loss of appetite, she was evaluated in the emergency department and she was found to have markedly elevated liver enzymes, she denied at that time any nausea, vomiting, and constipation or diarrhea. She was admitted to the medical floor. An ultrasound of the abdomen was done but did not show any acute issues. Gastroenterology Department evaluated this patient and they recommended to performed a hepatitis panel as well as LORETO, ceruloplasmin, CMV, hemochromatosis, and PBC are likely with the degree of elevation of LFTs, they also state that with her recent history of alcohol and possible drug use, acute viral hepatitis is very likely, the hepatitis panel came back positive for hepatitis A and B, we treated basically this patient medically here and she was getting a banana bag on a daily basis as well as some Protonix breathing treatment as needed, her liver enzymes upon admission were elevated. For instance, AST around 2628 and today is 645, ALT 1550 and went up to 2048 and now down to 1120. Her alkaline phosphatase has been about the same compared with admission at 158, we do not have previous records from this patient, it looks like this has been the first time that she has been hospitalized, yesterday this patient was about to be discharged. She is feeling significantly better. She is tolerating some diet, she does have generalized weakness, though, but she will be discharged home and Gastroenterology Department will follow this patient up closely as an outpatient and actually she has an appointment to see Dr. Anne on 04/01/2019 at 1:30 p.m. and also she has an appointment to see her primary doctor on 03/25/2019 at 9:30 a.m. I had a large conversation with the patient about alcohol use and she understands that she cannot drink more alcohol, this patient will be discharged home and follow up with Gastroenterology Department and primary care doctor. She seems to be stable. VITAL SIGNS: Temperature 98 degrees, pulse 70, respiratory rate 20, blood pressure 114/64, oxygen saturation 97% on room air. HEENT: Head normocephalic, no trauma. PERRLA. Neck is supple. No JVD. Central trachea. She has some icteric sclerae. Abdomen: Soft. Tenderness to palpation at the level of the right upper quadrant and periumbilical area extremities no edema no clubbing no cyanosis. Neurological: The patient is sleepy, but arousable. She is oriented x3. She is following commands and answering all my questions. LABORATORY: From yesterday, WBC 3.2, hemoglobin 10.3, hematocrit 31.0, platelet count 171,000, sodium 140, potassium 5.1, chloride 104, bicarbonate 29, BUN 5, creatinine 0.6, glucose 88, calcium 7.8, phosphorus 2.9. LFTs from today, total bilirubin 4.3, AST 645, ALT 1120, alkaline phosphatase 164, sodium 167. DISCHARGE MEDICATIONS: Lexapro 20 mg p.o. q.a.m., Remeron 15 mg p.o. at bedtime, oxycodone IR 5 mg p.o. q. 6 hours as needed, Pantoprazole 40 mg p.o. daily for 3 months, and thiamine 100 mg p.o. daily. cc: Tahir Hayes MD
== END 2019-03-19 16:08 | disposition home or self-care (01) | DRG 443 ==
LOC: ED 17:15 → SUATTDRO 22:15 → 3N 22:15
PROVIDERS: ATTEND Internal Medicine